=== PATIENT | male | born 1955 | race Caucasian/White ===

== ENCOUNTER → 2023-04-25 | Outpatient (CLI) | payer MEDICARE, MEDICAID ==
[~2023-04-25] MED LIST: CEFD300C3 PO; HYDR1TAB PO
== END ==
LOC: CARD 09:14
PROVIDERS: ATTEND Internal Medicine Cardiovascular Disease
DX: I34.0 Nonrheumatic mitral (valve) insufficiency (principal); R00.2 Palpitations
CPT/HCPCS: 93306

== ENCOUNTER → 2023-05-17 | Outpatient (CLI) | payer MEDICARE, MEDICAID ==
[~2023-05-17] MED LIST changes: +CATHETER FLUSH 10 ML SYR IVP PRN
[2023-05-17 09:18] VITALS: BP 150/78
--- NOTE | 2023-05-17 12:49 | Cardiology Stress Test Report ---
Stress Test Report Date of Procedure/Referring: Date of Procedure: May 17, 2023 PCP Dorys Navarro Aprn Admitting Physician Admitting Physician: Attending Physician: Amilcar Cha MD Baseline Heart Rate: 69 Baseline Blood Pressure: Blood Pressure Systolic: 150 Blood Pressure Diastolic: 78 Vital Signs Date Time Temp Pulse Resp B/P (MAP) Pulse Ox O2 Delivery O2 Flow Rate FiO2 05/17/23 09:18 69 150/78 (102) 99 Baseline Vital Signs Vital Signs Date Time Temp Pulse Resp B/P (MAP) Pulse Ox O2 Delivery O2 Flow Rate FiO2 05/17/23 09:18 69 150/78 (102) 99 Baseline EKG: Baseline EKG: NSR Summary: After explaining the procedure and details to the patient, he signed the consent and was brought to the stress nuclear laboratory. Patient exercised on standard Goyo protocol, EKG, heart rate and blood pressure were monitored continuously, resting and stress doses of radio tracer were injected, imaging was acquired and reviewed in the short axis, horizontal long axis and vertical long axis views Patient was able to exercise for a total of 3 minutes on Goyo protocol, METs 3.8 Maximum heart rate 141 Maximum blood pressure 178/95 Stress EKG, Minimal nondiagnostic changes Recovery EKG, Return to baseline TID: 1.02 SSS: 0 SDS: 0 EF: 60 Conclusion: Poor exercise tolerance for a total of 3 minutes on standard Goyo protocol, 3.8 METS achieving 91% of maximal expected heart rate Appropriate heart rate and blood pressure response to exercise return to baseline during recovery Nondiagnostic EKG changes with exercise return to baseline during recovery No significant ischemia or infarction noted on SPECT images Normal left ventricular size, ejection fraction 60% Copy Copies To 1: AARON FORMAN BASHAR J MD May 17, 2023 12:49
== END ==
LOC: CARD 07:22
PROVIDERS: ATTEND Internal Medicine Cardiovascular Disease
DX: R00.2 Palpitations (principal)
CPT/HCPCS: 78452; 93017; A9502